=== PATIENT | female | born 1985 | race Caucasian/White ===

== ENCOUNTER 2018-02-11 13:37 | Emergency (ER) | payer MEDICAID ==
[2018-02-11] MEDS ORDERED: KETOROLAC 30 MG/1 ML SDV IVP ONE (14:05)
--- NOTE | 2018-02-11 14:10 | EDPHY ---
HPI/HX/ROS/PE/MDM Narrative: CHIEF COMPLAINT: Abdominal pain HPI: This patient is a 32 y/o female with history of ovarian cysts complaining of abdominal pain. She recently moved to [place] from [place] and states she was scheduled for oophorectomy there. She had intercourse last night and immediately following this, around 8pm, she developed stabbing pain in her lower right abdomen and spotting. She took ibuprofen for relief and was able to sleep. Upon waking, her pain was still present and has remained throughout the day. Her discomfort feels similar to her prior ovarian cyst pain, but she has never had spotting associated with this in the past. She denies fever, vomiting , diarrhea, or other associated symptoms. REVIEW OF SYSTEMS: Aside from elements discussed in the HPI, a comprehensive 10-point review of systems was reviewed and is negative. PMH: Appendectomy. Cholecystectomy. and tubal ligation. SOCIAL HISTORY: Recently moved from [place] to [place]. PHYSICAL EXAM: General:Patient is alert, in no acute distress. ENT:Eyes are normal to inspection. ENT inspection normal. Neck: Normal inspection. Full range of motion. Respiratory:No respiratory distress. Breath sounds normal bilaterally. Cardiovascular: Regular rate and rhythm. Strong peripheral pulses. Normal cap refill. Abdomen: Lower right quadrant tenderness. There are no peritoneal signs. There are normal bowel sounds. Back: Normal to inspection. No tenderness to palpation. Skin: Normal color. No rash. Warm and dry. Extremities: Normal appearance. Full range of motion. Neuro: Oriented x3. Normal motor function. Normal sensory function. ED Course: 32 y/o female presents with LRQ abdominal pain onset yesterday around 20:00. She is s/p appendectomy, cholecystectomy, and tubal ligation. Her discomfort is consistent with prior ovarian cysts. Plan for pelvic US. Plan for labs including CBC, chemistries, UA, BHCG. Administered 30mg IV Toradol for pain relief. 15:[address] Rojas, radiologist. US pelvis negative for acute findings. 15:40 Reassessed patient. Discussed imaging results. She is feeling slightly better after Toradol administration, but continues to experience right-sided pelvic pain. The patient declines a pelvic exam at this time. The etiology of her pain is unclear but there is no sign of TOA, ovarian torsion, ovarian cyst, bowel obstruction. Workup limited by refusal of pelvic exam. Plan to discharge home in good condition with referral to [facility] for further evaluation of patient 's pelvic pain. Return precautions discussed with patient. She is comfortable with this plan. - Data Points Imaging Results: Imaging Impressions Pelvic/Renal Ultrasound 02/11/18 14:07 Impression: Normal ultrasound pelvis. Findings discussed with Constantine Lundberg MD at 15:17 hour, 02/11/2018. Laboratory Results: Laboratory Results 02/11/18 14:00 02/11/18 14:00 02/11/18 02/11/18 02/11/18 14:00 14:00 14:00 WBC RBC Hgb Hct MCV MCH MCHC RDW Plt Count MPV Neut % (Auto) Lymph % (Auto) [place] % (Auto) Eos % (Auto) Baso % (Auto) Nucleat RBC Rel Count Absolute Neuts (auto) Absolute Lymphs (auto) Absolute Monos (auto) Absolute Eos (auto) Absolute Basos (auto) Absolute Nucleated RBC Immature Gran % Immature Gran # Sodium 145 mEq/L mEq/L (135-145) Potassium 3.9 mEq/L mEq/L (3.5-5.2) Chloride 111 mEq/L H mEq/L (97-110) Carbon Dioxide 24 mEq/l mEq/l (22-31) Anion Gap 10 mEq/L mEq/L (8-16) BUN 13 mg/dL mg/dL (7-23) Creatinine 0.5 mg/dL L mg/dL (0.6-1.0) Estimated GFR > 60 Glucose 112 mg/dL H mg/dL (70-100) Calcium 9.5 mg/dL mg/dL (8.5-10.4) Beta HCG, Qual NEGATIVE Urine Color YELLOW Urine Appearance HAZY Urine pH 5.0 (5.0-7.5) Ur Specific [place] 1.016 (1.002-1.030) Urine Protein NEGATIVE (NEGATIVE) Urine Ketones NEGATIVE (NEGATIVE) Urine Blood 1+ H (NEGATIVE) Urine Nitrate NEGATIVE (NEGATIVE) Urine Bilirubin NEGATIVE (NEGATIVE) Urine Urobilinogen NEGATIVE EU EU (0.2-1.0) Ur Leukocyte Esterase NEGATIVE (NEGATIVE) Urine RBC 15-25 /hpf H /hpf (0-3) Urine WBC 1-3 /hpf /hpf (0-3) Ur Epithelial Cells 2+ /lpf H /lpf (NONE-1+) Urine Mucus TRACE /lpf /lpf (NONE-1+) Urine Glucose NEGATIVE (NEGATIVE) 02/11/18 14:00 WBC 11.17 10^3/uL H 10^3/uL (3.80-9.50) RBC 4.62 10^6/uL 10^6/uL (4.18-5.33) Hgb 13.2 g/dL g/dL (12.6-16.3) Hct 40.5 % % (38.0-47.0) MCV 87.7 fL fL (81.5-99.8) MCH 28.6 pg pg (27.9-34.1) MCHC 32.6 g/dL g/dL (32.4-36.7) RDW 13.9 % % (11.5-15.2) Plt Count 286 10^3/uL 10^3/uL (150-400) MPV 11.2 fL fL (8.7-11.7) Neut % (Auto) 76.3 % H % (39.3-74.2) Lymph % (Auto) 17.4 % % (15.0-45.0) [place] % (Auto) 5.2 % % (4.5-13.0) Eos % (Auto) 0.5 % L % (0.6-7.6) Baso % (Auto) 0.3 % % (0.3-1.7) Nucleat RBC Rel Count 0.0 % % (0.0-0.2) Absolute Neuts (auto) 8.53 10^3/uL H 10^3/uL (1.70-6.50) Absolute Lymphs (auto) 1.94 10^3/uL 10^3/uL (1.00-3.00) Absolute Monos (auto) 0.58 10^3/uL 10^3/uL (0.30-0.80) Absolute Eos (auto) 0.06 10^3/uL 10^3/uL (0.03-0.40) Absolute Basos (auto) 0.03 10^3/uL 10^3/uL (0.02-0.10) Absolute Nucleated RBC 0.00 10^3/uL 10^3/uL (0-0.01) Immature Gran % 0.3 % % (0.0-1.1) Immature Gran # 0.03 10^3/uL 10^3/uL (0.00-0.10) Sodium Potassium Chloride Carbon Dioxide Anion Gap BUN Creatinine Estimated GFR Glucose Calcium Beta HCG, Qual Urine Color Urine Appearance Urine pH Ur Specific [place] Urine Protein Urine Ketones Urine Blood Urine Nitrate Urine Bilirubin Urine Urobilinogen Ur Leukocyte Esterase Urine RBC Urine WBC Ur Epithelial Cells Urine Mucus Urine Glucose Medications Given: Discontinued Medications Ketorolac Tromethamine (Toradol) 30 mg IVP EDNOW ONE Stop: 02/11/18 14:06 Last Admin: 02/11/18 14:13 Dose: 30 mg General Time Seen by Provider: 02/11/18 13:52 Initial Vital Signs: Initial Vital Signs Temperature (C) 36.7 C 02/11/18 13:38 Heart Rate 85 02/11/18 13:38 Respiratory Rate 20 02/11/18 13:38 Blood Pressure 140/92 H 02/11/18 13:38 O2 Sat (%) 96 02/11/18 13:38 O2 Delivery Mode Room Air Allergies/Adverse Reactions: No Known Allergies Allergy (Unverified 02/11/18 13:38) Home Medications: Medication Instructions Recorded Cymbalta 02/11/18 Ketorolac Tromethamine 10 mg PO Q6H PRN #16 tab 02/11/18 Xanax 02/11/18 Departure - Departure Disposition: Home, Routine, Self-Care Clinical Impression: Pelvic pain in female Condition: Good Instructions: Pelvic Pain in Women (ED) Additional Instructions: 1. Follow up with an [facility] specialist this week for further evaluation. 2. Return to the emergency department for worsening or changing pain, fever, heavy bleeding, vomiting, or other worsening of condition. Referrals: [facility],. [Clinic] - As per Instructions Radha Lui MD [Medical Doctor] - As per Instructions Prescriptions: Ketorolac Tromethamine 10 mg PO Q6H PRN #16 tab PRN Reason: Pain/inflammation Report Scribed for: Constantine Lundberg Report Scribed by: Francesca Flood Date of Report: 02/11/18 Time of Report: 14:00 Physician Review and Approval Statement: Portions of this note were transcribed by an ED scribe. I personally performed the history, physical exam, and medical decision making; and confirm the accuracy of the information in the transcribed note.
[2018-02-11 14:12] LABS: PLATELET COUNT 286 10^3/uL (150-400)
[2018-02-11 15:58] VITALS: BP 139/90
== END 2018-02-11 15:58 | disposition home or self-care (01) ==
DX: R10.2 Pelvic and perineal pain (principal); Z90.49 Acquired absence of other specified parts of digestive tract; Z90.89 Acquired absence of other organs
CPT/HCPCS: 96374; J1885